=== PATIENT | female | born 1945 | race Caucasian/White ===

== ENCOUNTER → 2016-10-06 09:55 | Outpatient (CLI) | payer BC ==
[2012-09-21 05:57] VITALS: BMI 38.3
[~2016-10-06 09:55] MED LIST: CALCIUM 600 +1 EAC3 PO; CO Q-10200 MG PO; FISH OIL 1,0001 CA1 PO; HYDROCODONE-APA1 TAB PO
== END | disposition home or self-care (01) ==
LOC: D.MRI 09:55
DX: S83.271A Complex tear of lateral meniscus, current injury, right knee, initial encounter (principal)

== ENCOUNTER 2016-10-28 07:04 | Day surgery (SDC) | payer BC ==
[2016-10-27 16:03] LABS: APTT 22.5 SECONDS (22.8-39.4); INR 0.91 (0.85-1.17); PROTIME 12.1 SECONDS (11.6-15.0)
[2016-10-27 16:12] LABS: BASOPHILS 0.3 % (0.0-2.0); EOSINOPHILS 1.5 % (0-7); HEMATOCRIT 43.2 % (36.0-48.0); HEMOGLOBIN 14.1 g/dL (12-16); LYMPHOCYTES 35.2 % (15-50); MCH 31.2 pg (26.0-34.0); MCHC 32.6 g/dL (31.0-37.0); MCV 95.6 fL (80.0-100.0); MEAN PLATELET VOLUME 11.1 fL (7.4-10.4); MONOCYTES 6.7 % (2-11); NEUTROPHILS 56.3 % (40-80); PLATELET COUNT 175 10x3/uL (130-400); RBC 4.52 10x6/uL (4.00-5.40); RDW 13.3 % (11.5-14.5); WBC 6.1 10x3/uL (4.8-10.8)
[~2016-10-28 07:04] MED LIST changes: -HYDROCODONE-APA1 TAB PO
[2016-10-28 08:53] VITALS: BP 145/85; BMI 32.8
[2016-10-28] MEDS ORDERED: HYDROCODONE-APA1 TAB PO (12:54)
--- NOTE | 2016-10-28 14:59 | NUR ---
1415 IV DC WITH CATHER TIP INTACT
--- NOTE | 2016-11-01 11:59 | OP ---
PATIENT NAME: CATERINA TOMAS MEDICAL RECORD: [id number] :43 LOCATION:[facility] ADMISSION DATE: SURGEON: KENDRA GRAVES MD DATE OF OPERATION: 10/28/2016 PREOPERATIVE DIAGNOSES: Right knee medial and lateral meniscus tear. POSTOPERATIVE DIAGNOSES: Right knee medial and lateral meniscus tear. PROCEDURES: 1. Arthroscopic partial medial meniscectomy. 2. Arthroscopic partial lateral meniscectomy. SURGEON: Kendra Graves MD. ANESTHESIA: General. INTRAOPERATIVE COMPLICATIONS: None. SUMMARY OF PATHOLOGIC FINDINGS: The patient had a complex tear of the posterior horn of medial meniscus with a bucket-handle tear of the lateral meniscus consistent with the preoperative MRI. OPERATIVE SUMMARY IN DETAIL: After obtaining the appropriate preoperative orthopedic surgery consents as well as anesthetic consultation, evaluation and clearance, the patient was brought to the operating room and placed on the operating table in supine position. After general laryngeal mask was administered, tourniquet was placed about the proximal aspect of the right lower extremity. Right lower extremity was then prepped and draped in routine sterile fashion. Leg was elevated, exsanguinated and tourniquet was inflated to 350 mmHg. Routine inferolateral portal was established followed by superior medial portal and inferomedial portal. Diagnostic arthroscopy did reveal the above findings. Attention was first turned to the medial meniscus tear. A combination of a 3.5 full radius resector as well as a meniscotome were utilized to debride the meniscus back to stable meniscal elements. No substantial arthritis was seen in this compartment. The knee was then placed in the [id number]-rson position and the bucket-handle tear was clipped at the root on each side and removed in its entirety. The area of the tear was then smoothened for nice transition. At this point, the knee was insufflated with 30 cc of 0.25% Marcaine with epinephrine and 80 mg of Depo-Medrol. Arthroscopy portals were closed in routine interrupted fashion using 4-0 Prolene. Sterile dressings were applied. The patient was awakened, taken to recovery in stable condition. All final needle and sponge counts were correct. 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
== END 2016-10-28 14:30 | disposition home or self-care (01) ==
LOC: D.OPS 07:04
PROVIDERS: Anesthesiology
DX: S83.251A Bucket-handle tear of lateral meniscus, current injury, right knee, initial encounter (principal); S83.221A Peripheral tear of medial meniscus, current injury, right knee, initial encounter; M17.11 Unilateral primary osteoarthritis, right knee